=== PATIENT | female | born 1965 | race Caucasian/White ===

== ENCOUNTER 2017-01-23 13:25 | Emergency (ER) | payer OTHER ==
[~2017-01-23] VITALS: Ht 160 cm; Wt 135.7 kg
[~2017-01-23 13:25] MED LIST: ASPIR 8181 M1 PO; ASPIRIN EC325 MG PO; ATORVASTATIN CA80 MG PO; CLOPIDOGREL75 MG PO; DICYCLOMINE HCL20 MG PO; FLEXERIL10 MG PO; FLOVENT 11120 INHALA IH; GABAPENTIN400 MG PO; GABAPENTIN600 MG PO; HORIZANT300 MG PO; LASIX20 MG PO; LEVOTHYROXINE50 MCG PO; LEVOTHYROXINE75 MCG PO; LORTAB 7.5-3251 EACH PO; MORPHINE SULFAT15 M1 PO; MOTRIN400 MG PO; NAPROSYN-EC500 MG PO; NEURONTIN300 MG PO; NEURONTIN600 MG PO; NITROSTAT0.4 MG SL; PAXIL20 MG PO; PAXIL40 MG PO; PERCOCET 10-321 EACH PO; PERCOCET 10/1 TABLET PO; PERCOCET 5/31 TABLET PO; PREDNISONE1 MG PO; PREDNISONE10 MG PO; PROAIR RESPICL90 MCG IH; SIMVASTATIN20 MG PO; SOMA350 MG PO; SYNTHROID25 MCG PO; ULTRAM50 MG PO; VALIUM5 MG PO; VENTOLIN HFA18 GM IH; WELLBUTRIN XL300 MG PO; ZOCOR10 M1 GT; ZOLOFT25 MG PO
[2017-01-23 15:08] LABS: POINT-OF-CARE METER ID UU13113800
[2017-01-23] MEDS ORDERED: METFORMIN HCL500 M4 PO (15:11)
[2017-01-23 15:26] VITALS: BP 120/76
== END 2017-01-23 15:36 | disposition home or self-care (01) ==
LOC: EME 13:25
PROVIDERS: Physician Assistant
DX: M54.5 Low back pain (principal); R73.9 Hyperglycemia, unspecified; E03.9 Hypothyroidism, unspecified
CPT/HCPCS: 82948; 99281; 99283; J1885

== ENCOUNTER 2017-01-27 15:16 | Emergency (ER) | payer OTHER ==
[~2017-01-27] VITALS: Ht 160 cm; Wt 136.0 kg
[~2017-01-27 15:16] MED LIST changes: +METFORMIN HCL500 M4 PO
[2017-01-27 15:57] LABS: HEMATOCRIT 49.1 % (36.0-46.0); MCH 27.3 PG (29.0-34.0); MCHC 33.2 G/DL (30.0-36.0); MCV 82.1 FL (83-99); MEAN PLAT.VOLUME 10.6 uM^3 (9.5-12.4); PLATELET COUNT 217 K/uL (156-360); RBC DIS.WIDTH-CV 15.6 % (11.8-14.6); RBC DIS.WIDTH-SD 46.9 % (39-53); RED BLOOD COUNT 5.98 M/uL (3.80-5.20); WHITE BLOOD COUNT 6.1 K/uL (4.1-10.2)
[2017-01-27 16:03] LABS: ADD MIUA? YES; BILIRUBIN NEGATIVE; BLOOD NEGATIVE; COLOR YELLOW ((YELLOW)); GLUCOSE (STRIP) >=500; KETONES 5; LEUKOCYTES MODERATE; NITRITE NEGATIVE; PROTEIN (STRIP) 100; SPECIFIC GRAVITY 1.035 (1.000-1.030); UROBILINOGEN 0.2 MG/DL (0.2-1.0)
[2017-01-27 16:06] LABS: CHLORIDE 102 mEq/L (99-109); POTASSIUM 4.1 mEq/L (3.7-5.4); SODIUM 135 mEq/L (136-147)
[2017-01-27 16:09] LABS: GLUCOSE 339 mg/dL (70-99)
[2017-01-27 16:10] LABS: ANION GAP 9 MEQ/L (2-14)
[2017-01-27 16:11] LABS: TOTAL BILIRUBIN 1.7 mg/dL (0.0-1.0)
[2017-01-27 16:12] LABS: ALKALINE PHOSPHATASE 119 IU/L (3-129); GFR ESTIMATE (CALCULATED) > 59 mL/min/
[2017-01-27 16:13] LABS: UREA NITROGEN (BUN) 5 mg/dL (9-23)
[2017-01-27 16:14] LABS: BACTERIA NONE SEEN /HPF; CALCIUM OXALATE CRYSTALS 1+ /HPF; EPITHELIAL CELLS 2+ /HPF; MUCUS TRACE /LPF; RED BLOOD CELLS 15-20 /HPF (0-5); UCUL ADDED? NO; WHITE BLOOD CELLS 15-20 /HPF (0-5)
[2017-01-27 16:22] LABS: QUANTITATIVE HCG < 4.0 MIU/ML
[2017-01-27] MEDS ORDERED: KADIAN30 MG PO (17:53)
[2017-01-27] MEDS ORDERED: FLEXERIL10 MG PO (17:54)
[2017-01-27] MEDS ORDERED: DIFLUCAN200 MG PO (21:16)
[2017-01-27] MEDS ORDERED: KEFLEX500 MG PO (21:16)
[2017-01-27] MEDS ORDERED: ZOFRAN ODT4 MG PO (21:16)
[2017-01-27 21:57] VITALS: BP 105/82
== END 2017-01-27 22:04 | disposition home or self-care (01) ==
LOC: EME 15:16
DX: N39.0 Urinary tract infection, site not specified (principal); R19.7 Diarrhea, unspecified; R11.0 Nausea; G89.29 Other chronic pain; J44.9 Chronic obstructive pulmonary disease, unspecified; E66.9 Obesity, unspecified; Z68.43 Body mass index [BMI] 50.0-59.9, adult; Z79.891 Long term (current) use of opiate analgesic; F17.200 Nicotine dependence, unspecified, uncomplicated
CPT/HCPCS: 74177; 80053; 81003; 84702; 85027; 87086; 99281; 99284; J0696; J2405; J3010; J7030; J7050

== ENCOUNTER 2017-10-31 22:41 | Emergency (ER) | payer OTHER ==
[~2017-10-31] VITALS: Ht 160 cm; Wt 127.5 kg
[~2017-10-31 22:41] MED LIST changes: +DIFLUCAN200 MG PO; +KADIAN30 MG PO; +KEFLEX500 MG PO; +TESSALON PERLE100 MG PO; +ZOFRAN ODT4 MG PO
[2017-11-01 00:20] VITALS: BP 123/67
== END 2017-11-01 00:35 | disposition home or self-care (01) ==
LOC: EME 22:41
DX: S86.912A Strain of unspecified muscle(s) and tendon(s) at lower leg level, left leg, initial encounter (principal); W10.9XXA Fall (on) (from) unspecified stairs and steps, initial encounter; J40 Bronchitis, not specified as acute or chronic; J44.9 Chronic obstructive pulmonary disease, unspecified; G89.29 Other chronic pain; E66.9 Obesity, unspecified; Z68.42 Body mass index [BMI] 45.0-49.9, adult; F17.200 Nicotine dependence, unspecified, uncomplicated
CPT/HCPCS: 73564; 99281; 99284

== ENCOUNTER 2018-02-01 10:55 | Day surgery (SDC) | payer OTHER ==
[~2018-02-01] VITALS: Ht 160 cm; Wt 129.7 kg
[~2018-02-01 10:55] MED LIST changes: +LYRICA50 MG PO; +METFORMIN HCL1000 MG PO
[2018-02-01 11:29] VITALS: BP 124/66
[2018-02-01 16:30] VITALS: BP 114/57
[2018-02-01 17:27] VITALS: BP 114/58
[2018-02-01 18:05] VITALS: BP 114/57
== END 2018-02-01 18:15 | disposition home or self-care (01) ==
LOC: SDC 10:55
PROVIDERS: Orthopaedic Surgery
PROC: 0SQG0ZZ Repair Left Ankle Joint, Open Approach (ICD-10-PCS; principal; 2018-02-01)
DX: S82.832A Other fracture of upper and lower end of left fibula, initial encounter for closed fracture (principal); S96.892A Other specified injury of other specified muscles and tendons at ankle and foot level, left foot, initial encounter; W17.89XA Other fall from one level to another, initial encounter; Y93.89 Activity, other specified; Y92.008 Other place in unspecified non-institutional (private) residence as the place of occurrence of the external cause; E11.9 Type 2 diabetes mellitus without complications; Z79.84 Long term (current) use of oral hypoglycemic drugs; G47.30 Sleep apnea, unspecified; Z79.82 Long term (current) use of aspirin; J44.9 Chronic obstructive pulmonary disease, unspecified; F32.9 Major depressive disorder, single episode, unspecified; I25.10 Atherosclerotic heart disease of native coronary artery without angina pectoris; Z95.5 Presence of coronary angioplasty implant and graft; Z90.49 Acquired absence of other specified parts of digestive tract; Z90.79 Acquired absence of other genital organ(s); Z82.49 Family history of ischemic heart disease and other diseases of the circulatory system; Z83.79 Family history of other diseases of the digestive system; Z80.9 Family history of malignant neoplasm, unspecified
CPT/HCPCS: 73610; 76000; 82948; J0131; J0330; J0690; J1100; J1170; J1885; J2250; J2405; J2795; S0020

== ENCOUNTER 2018-06-05 12:07 | Emergency (ER) | payer OTHER ==
[~2018-06-05] VITALS: Ht 160 cm; Wt 125.0 kg
[2018-06-05 14:48] LABS: APPEARANCE SL.HAZY ((CLEAR)); BILIRUBIN SMALL; BLOOD NEGATIVE; COLOR AMBER ((YELLOW)); GLUCOSE (STRIP) NEGATIVE; KETONES 5; LEUKOCYTES MODERATE; NITRITE POSITIVE; PROTEIN (STRIP) 30; SPECIFIC GRAVITY 1.039 (1.000-1.030)
[2018-06-05 15:04] LABS: BACTERIA 1+ /HPF; EPITHELIAL CELLS 2+ /HPF; HYALINE CASTS 0-5 /LPF; MUCUS 1+ /LPF; UCUL ADDED? YES; WHITE BLOOD CELLS 20-30 /HPF (0-5)
[2018-06-05] MEDS ORDERED: KEFLEX500 MG PO (15:55)
[2018-06-05] MEDS ORDERED: BACLOFEN10 MG PO (15:55)
[2018-06-05] MEDS ORDERED: LIDODERM 5% P1 PATCH TD (15:55)
[2018-06-05] MEDS ORDERED: MOTRIN800 MG PO (15:55)
[2018-06-05] MEDS ORDERED: VOLTAREN 1% GE100 GM TP (15:55)
[2018-06-05 16:33] VITALS: BP 123/77
== END 2018-06-05 16:39 | disposition home or self-care (01) ==
LOC: EME 12:07
PROVIDERS: Nurse Practitioner Family
DX: M54.40 Lumbago with sciatica, unspecified side (principal); N30.90 Cystitis, unspecified without hematuria; M51.36 Other intervertebral disc degeneration, lumbar region; M48.00 Spinal stenosis, site unspecified; M79.7 Fibromyalgia; M19.90 Unspecified osteoarthritis, unspecified site; E11.9 Type 2 diabetes mellitus without complications; F41.9 Anxiety disorder, unspecified; F32.9 Major depressive disorder, single episode, unspecified; F17.200 Nicotine dependence, unspecified, uncomplicated; Z90.49 Acquired absence of other specified parts of digestive tract; Z90.710 Acquired absence of both cervix and uterus; Z79.84 Long term (current) use of oral hypoglycemic drugs; Z95.5 Presence of coronary angioplasty implant and graft
CPT/HCPCS: 81003; 87077; 87086; 87186; 99281; 99285; J1885; J3010